=== PATIENT | male | born 1995 | race African-American/Black ===

== ENCOUNTER 2021-02-18 22:24 | Emergency (ER) | payer MEDICAID ==
[~2021-02-18] VITALS: Ht 177.8 cm; Wt 100.0 kg
[2021-02-18] MEDS ORDERED: ACETAMINOPHEN 325MG TABLET PO STA (23:38)
[2021-02-18] MEDS ORDERED: KETOROLAC 30MG/ML VIAL IV STA (23:38)
[2021-02-18] MEDS ORDERED: MORPHINE SULFATE 4 MG/ML CPJ (NOT FOR IM USE) IV STA (23:38)
[2021-02-18] MEDS ORDERED: METHOCARBAMOL 750MG TABLET PO SCH (23:45)
[2021-02-18] MEDS ORDERED: DEXAMETHASONE 10 MG/ML VIAL IV ONE (23:45)
[2021-02-19] MEDS ORDERED: METH-375 MT (00:44)
[2021-02-19] MEDS ORDERED: IBUP-2029 MT (00:44)
[2021-02-19 00:50] VITALS: BP 127/68
== END 2021-02-19 00:59 | disposition home or self-care (01) ==
LOC: ER 22:24
DX: M54.9 Dorsalgia, unspecified (principal); M54.32 Sciatica, left side
CPT/HCPCS: 72131; 96374; 96375; 99284; J1100; J1885

== ENCOUNTER 2021-03-17 17:12 | Emergency (ER) | payer MEDICAID ==
[~2021-03-17] VITALS: Ht 177.8 cm; Wt 91.0 kg
[~2021-03-17 17:12] MED LIST: IBUP-2029 MT; METH-375 MT
[2021-03-17] MEDS ORDERED: MORPHINE SULFATE 4 MG/ML CPJ (NOT FOR IM USE) IV STA (18:21)
[2021-03-17] MEDS ORDERED: ONDANSETRON HCL 4MG/2ML INJ IV STA (18:21)
[2021-03-17] MEDS ORDERED: FAMOTIDINE 20MG/2ML VIAL IV STA (18:21)
[2021-03-17] MEDS ORDERED: SODIUM CHLORIDE 0.9% 1,000 ML IV ONE (18:30)
[2021-03-17 18:53] LABS: BASOPHILS % 0.4 % (0.0-2.0); EOSINOPHILS % 0.5 % (0.0-5.0); HEMATOCRIT. 42.8 % (42.0-52.0); HEMOGLOBIN. 14.2 g/dL (14.0-18.0); LYMPHOCYTES % 11.3 % (20.0-50.0); MEAN CORPUSCULAR HEMOGLOBIN 23.1 pg (28.0-32.0); MEAN CORPUSCULAR VOLUME 69.6 fL (80.0-94.0); MEAN PLATELET VOLUME 9.4 fl (7.4-10.4); NEUTROPHILS % 79.8 % (40.0-76.0); PLATELET 228 x1000/uL (130-400); RED BLOOD CELL COUNT 6.15 mill/uL (4.7-6.1); RED CELL DISTRIBUTION WIDTH 14.9 % (11.6-14.6)
[2021-03-17 18:59] LABS: CHLORIDE 104 mEq/L (98-107)
[2021-03-17 19:01] LABS: INR 1.2; PROTHROMBIN TIME 12.3 sec (9.6-11.0)
[2021-03-17 19:04] LABS: ETHANOL BLOOD < 10 mg/dL
[2021-03-17 19:50] LABS: PLATELET ESTIMATE NORMAL
[2021-03-17] MEDS ORDERED: KETOROLAC 30MG/ML VIAL IV ONE (20:30)
[2021-03-17] MEDS ORDERED: ONDANSETRON HCL 4MG/2ML INJ IV ONE (21:15)
[2021-03-17] MEDS ORDERED: ONDA4TAB11 PO (22:55)
[2021-03-17] MEDS ORDERED: OMEP20CA14 MT (22:55)
[2021-03-18] VITALS: BP 121/79
== END 2021-03-18 00:38 | disposition home or self-care (01) ==
LOC: ER 17:12
DX: R10.13 Epigastric pain (principal); R11.2 Nausea with vomiting, unspecified; Q53.20 Undescended testicle, unspecified, bilateral; Z79.899 Other long term (current) drug therapy
CPT/HCPCS: 36415; 74176; 80053; 80320; 83690; 85025; 85610; 86850; 86900; 86901; 93005; 96361; 96374; 96375; 99285; J1885; J2270; J2405; J3490; J7030; G0480